=== PATIENT | female | born 1925 | race Two or more races ===

== ENCOUNTER → 2016-12-04 | Outpatient (CLI) | payer MEDICARE, OTHER ==
[2016-04-09 11:29] VITALS: BP 158/85
[~2016-12-04] MED LIST: ALPR0.254 PO; ASPI-253 PO; ATEN50TA PO; AZIT250T6 PO; BARIUM SULFATE 60% 355 ML SUSP PO ONE; BARIUM SULFATE 98% 135 ML SUSP PO ONE; CHOL10002 PO; CLIN75CA2 PO; ESOM40CA PO; FENO160T PO; FLAX1000 PO; GABA-586 PO; HYDR-2666 PO; LEVO50TA5 PO; MULT-658 PO; PRED-220 PO; PREN1TAB12 PO; RANI150C PO; SIMETHICONE/SOD BICARB/CITRIC ACID PACKET. PO ONE; TRAM50TA PO
--- NOTE | 2016-12-04 09:25 | RAD ---
Esophagram, 12/04/2016: History: Dysphasia, pain The exam was performed utilizing high density barium and regular liquid barium. The study was partially compromised by the patient's poor mobility. 2.5 minutes of fluoroscopy time was utilized. 6 static and dynamic fluoroscopic sequences were recorded. 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 The esophagus at the level of the prominent cricopharyngeal impression opens up to an AP diameter of 5-6 mm during swallowing. No significant Zenker's diverticulum is seen. The remainder of the esophagus demonstrates abnormal peristalsis with tertiary contractions particularly in the mid and distal esophagus. No obstructing mass is seen. There is a small hiatal hernia. No gastroesophageal reflux was demonstrated. IMPRESSION: 1. 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 2. Abnormal esophageal peristalsis with tertiary contractions. 3. Small hiatal hernia.
== END | disposition home or self-care (01) ==
LOC: RAD 08:00
PROVIDERS: ATTEND Internal Medicine Gastroenterology
DX: R13.10 Dysphagia, unspecified (principal); K44.9 Diaphragmatic hernia without obstruction or gangrene
CPT/HCPCS: 74220